=== PATIENT | female | born 1980 ===

== ENCOUNTER 2018-08-26 10:24 | Emergency (ER) | payer OTHER ==
[2018-08-26 10:32] VITALS: BMI 30.2
[2018-08-26 10:33] VITALS: BP 123/85; PULSE 84; RESP 16; TEMP 99.6; O2SAT 98
--- NOTE | 2018-08-26 11:34 | ED PDOC ---
HPI: General Adult Time Seen by Provider: 08/26/18 11:00 Chief Complaint (Nursing): Flu-like Symptoms Chief Complaint (Provider): FEVER, DYSURIA History Per: Patient History/Exam Limitations: no limitations Onset/Duration Of Symptoms: Days Have you had recent travel within the past 21 days to any of the following countries: [place], [place], [place] or [place]?: No Current Symptoms Are (Timing): Still Present Severity: Mild Pain Scale Rating Of: 4 Additional History Per: Patient Additional Complaint(s): 38 Y/O FEMALE WITH NO SIGNIFICANT MEDICAL PROBLEM PRESENTS TO THE ED C/O LOWER ABD PAIN, FEVER, CHILLS, NAUSEA AND BODYACHES SINCE TUESDAY. PT REPPORTS SHE FEVER HAS BEEN 100.4-100.7. SHE STATES PAIN UPON VOIDING EARLY IN THE WEEK BUT SINCE PAIN HAS IMPROVED SINCE SHE INCREASED WATER INTAKE. SHE DENIES COUGH, DIARRHEA, COLD-LIKE SYMPTOMS. Past Medical History Vital Signs: Last Vital Signs Temp 99.6 F 08/26/18 10:32 Pulse 84 08/26/18 10:32 Resp 16 08/26/18 10:32 BP 123/85 08/26/18 10:32 Pulse Ox 98 08/26/18 10:32 EFFIE Report Viewed: No - Medical History PMH: No Chronic Diseases - Surgical History Surgical History: Appendectomy, - Family History Family History: States: Unknown Family Hx - Living Arrangements Living Arrangements: With Family - Social History Alcohol: None Drugs: Denies - Immunization History Hx Tetanus Toxoid Vaccination: No Hx Influenza Vaccination: No Hx Pneumococcal Vaccination: No - Home Medications Home Medications: Ambulatory Orders Medication Instructions Recorded Acetaminophen [Tylenol 325mg tab] 650 mg PO Q6 #30 tab 03/27/18 Nitrofurantoin Macrocrystals 100 mg PO BID #14 cap 03/27/18 [Macrobid] Nitrofurantoin Monohyd/M-Cryst 100 mg PO BID #10 capsule 08/26/18 [Macrobid 100 mg Capsule] - Allergies Allergies/Adverse Reactions: Allergies Allergy/AdvReac Type Severity Reaction Status Date / Time No Known Allergies Allergy Verified 03/27/18 14:20 Review of Systems ROS Statement: Except As Marked, All Systems Reviewed And Found Negative Constitutional: Positive for: Fever, Chills, Malaise. Negative for: Sweats, Weakness Eyes: Negative for: Pain ENT: Negative for: Ear Pain, Mouth Swelling, Throat Swelling Respiratory: Negative for: Cough, Shortness of Breath Gastrointestinal: Positive for: Nausea, Abdominal Pain (LOWER ABD PAIN). Negative for: Vomiting Genitourinary Female: Positive for: Dysuria, Frequency, Pelvic Pain. Negative for: Incontinence, Hematuria, Vaginal Discharge, Vaginal Bleeding Musculoskeletal: Negative for: Neck Pain, Shoulder Pain, Arm Pain Skin: Negative for: Rash Neurological: Negative for: Weakness Physical Exam - Reviewed Nursing Documentation Reviewed: Yes Vital Signs Reviewed: Yes - Physical Exam Appears: Positive for: Well, Non-toxic, No Acute Distress Head Exam: Positive for: ATRAUMATIC, NORMAL INSPECTION, NORMOCEPHALIC Skin: Positive for: Normal Color, Warm, DRY Eye Exam: Positive for: EOMI, Normal appearance, PERRL ENT: Positive for: Normal ENT Inspection, TM Is/Are (INTACT, NEG FOR REDNESS). Negative for: Nasal Congestion, Pharyngeal Erythema, Tonsillar Swelling Neck: Positive for: Normal, Painless ROM Cardiovascular/Chest: Positive for: Regular Rate, Rhythm Respiratory: Positive for: CNT, Normal Breath Sounds Pulses-Radial (L): 2+ Pulses-Radial (R): 2+ Gastrointestinal/Abdominal: Positive for: Normal Exam, Soft Back: Positive for: Normal Inspection. Negative for: L CVA Tenderness, R CVA Tenderness Extremity: Positive for: Normal ROM Neurological/Psych: Positive for: Awake, Alert, Normal Tone, Oriented - Laboratory Results Urine POC: Negative - ECG O2 Sat by Pulse Oximetry: 98 - Progress ED Course And Treament: INFLUENZA UA: POS FOR MANY BACTERIA, LARGE LEUKS AND MANY WBC'S UPREG URINE C&S CLINICAL FINDINGS DISCUSSED WITH PATIENT. IMPRESSION UTI, RX GIVEN FOR MACROBID 100MG PO BID FOR 5 DAYS. PT GIVEN RETURN TO ED PRECAUTIONS. PT VERBALIZES UNDERSTANDING. INSTRUCTIONS GIVEN BY ME IN [place]RAINIAN. Disposition - Clinical Impression Clinical Impression: UTI (urinary tract infection) Counseled Patient/Family Regarding: Diagnosis, Rx Given - Disposition Disposition: Routine/Home Disposition Time: 12:20 Condition: GOOD Prescriptions: Nitrofurantoin Monohyd/M-Cryst [Macrobid 100 mg Capsule] 100 mg PO BID #10 capsule Instructions: Urinary Tract Infections in Adults Print Language: [place]RAINIAN - POA Present On Arrival: None
[2018-08-26 12:08] LABS: URINE BACTERIA MANY (<OCC); URINE BILIRUBIN NEGATIVE (NEGATIVE); URINE BLOOD SMALL (NEGATIVE); URINE CLARITY CLOUDY (Clear); URINE COLOR YELLOW (YELLOW); URINE GLUCOSE (UA) NEG (NEGATIVE); URINE LEUKOCYTE ESTERASE LARGE Leu/uL (Negative); URINE PROTEIN 30 mg/dL (NEGATIVE); URINE UROBILINOGEN 0.2-1.0 mg/dL (0.2-1.0)
[2018-08-26 12:09] LABS: SQUAMOUS EPITHIAL 3 /hpf (0-5)
== END 2018-08-26 12:34 | disposition home or self-care (01) ==
LOC: H.ER 10:24
DX: N39.0 Urinary tract infection, site not specified (principal)